=== PATIENT | male | born 1955 | race Caucasian/White ===

== ENCOUNTER 2018-04-06 09:08 | Emergency (ER) | payer MEDICARE ==
[~2018-04-06] VITALS: Ht 180.3 cm; Wt 76.8 kg
[~2018-04-06 09:08] MED LIST: CLON-527 PO; CYCL-1 PO; DEXT5TAB26 PO; FINA5TAB11 PO; FLO0.4C PO; FLUO20CA39 PO; GABA-532 PO; LISI-600 PO; METF1000 PO; MORP-64 PO; MORP30CA16 PO; OXCA600T PO
[2018-04-06] MEDS ORDERED: ondansetron 4mg rapidly disintigrating tab PO ONE (11:50)
[2018-04-06] MEDS ORDERED: HYDROmorphone 1 mg/ml syringe IM ONE (11:50)
[2018-04-06 12:37] VITALS: BP 144/79
== END 2018-04-06 12:35 | disposition home or self-care (01) ==
LOC: ER 09:08
DX: M54.2 Cervicalgia (principal); M54.9 Dorsalgia, unspecified; R51 Headache; E11.9 Type 2 diabetes mellitus without complications; G89.29 Other chronic pain; F17.200 Nicotine dependence, unspecified, uncomplicated; Z88.2 Allergy status to sulfonamides; Z79.84 Long term (current) use of oral hypoglycemic drugs; Z79.899 Other long term (current) drug therapy
CPT/HCPCS: 70450; 72070; 72100; 72125; 96372; 99284; J1170